=== PATIENT | female | born 1975 | race Caucasian/White ===

== ENCOUNTER → 2019-06-11 | Outpatient (CLI) | payer OTHER ==
--- NOTE | 2019-06-11 18:18 | Diagnostic Imaging Report ---
Exam: Lumbar spine AP lateral History: Back pain Comparison: None. Findings: No fracture or malalignment. Multilevel degenerative endplate change with mild narrowing at L5-S1. No abnormal soft tissue calcification or soft tissue defect. Impression: No acute osseous abnormality Mild lumbar spondyloarthropathy Signed by: Dr. Trae Salcedo M.D. on 06/11/2019 6:15 PM
== END ==
LOC: RAD 16:51
PROVIDERS: ATTEND Internal Medicine
DX: M54.5 Low back pain (principal)
CPT/HCPCS: 72110

== ENCOUNTER → 2019-07-29 | Outpatient (CLI) | payer OTHER | LOC: MAMMO 10:37 | PROVIDERS: ATTEND Internal Medicine | DX: N63.20 Unspecified lump in the left breast, unspecified quadrant (principal); N64.4 Mastodynia ==